=== PATIENT | male | born 1990 | race Caucasian/White ===

== ENCOUNTER 2020-05-09 21:15 | Emergency (ER) | payer OTHER ==
[~2020-05-09] VITALS: Ht 182.9 cm; Wt 86.2 kg
[2020-05-10] MEDS ORDERED: AZITHROMYCIN500 MG PO (03:21)
== END 2020-05-10 03:50 | disposition home or self-care (01) ==
LOC: ER 21:15
DX: N39.0 Urinary tract infection, site not specified (principal); A63.8 Other specified predominantly sexually transmitted diseases; Z20.822 Contact with and (suspected) exposure to COVID-19